=== PATIENT | female | born 1980 | race Caucasian/White ===

== ENCOUNTER 2016-10-20 08:22 | Outpatient (CLI) | payer OTHER ==
[2016-04-20 09:13] VITALS: BP 130/62
[2016-10-20 09:08] LABS: eGFR (African) > 60; eGFR (Non-African) > 60
== END 2016-10-20 08:23 ==
LOC: LAB 08:22
PROVIDERS: ATTEND Internal Medicine Endocrinology, Diabetes & Metabolism
DX: D35.2 Benign neoplasm of pituitary gland (principal); L68.0 Hirsutism
CPT/HCPCS: 36415; 80053; 82670; 83001; 84146; 84402; 84403; 84439; 84443

== ENCOUNTER 2017-05-11 14:15 | Outpatient (CLI) | payer OTHER ==
[2016-04-20 09:13] VITALS: BP 130/62
[2017-05-11 15:17] LABS: eGFR (African) > 60; eGFR (Non-African) > 60
== END 2017-05-11 14:20 ==
LOC: LAB 14:15
PROVIDERS: ATTEND Internal Medicine Endocrinology, Diabetes & Metabolism
DX: D35.2 Benign neoplasm of pituitary gland (principal); E28.2 Polycystic ovarian syndrome; L68.0 Hirsutism
CPT/HCPCS: 36415; 80053; 82670; 84146; 84403